=== PATIENT | female | born 1990 | race Caucasian/White ===

== ENCOUNTER 2017-06-01 10:03 | Emergency (ER) | payer OTHER, BC ==
[~2017-06-01] VITALS: Ht 157.5 cm; Wt 66.0 kg
[2017-06-01 10:04] VITALS: BP 138/92; PULSE 98; RESP 16; TEMP 98.2; O2SAT 100
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
[2017-06-01] MEDS ORDERED: CYCL10TA PO (13:05)
[2017-06-01] MEDS ORDERED: NAPR375T4 PO (13:05)
[2017-06-01 14:30] VITALS: BP 134/86; PULSE 87; RESP 18; O2SAT 97
== END 2017-06-01 13:44 | disposition home or self-care (01) ==
LOC: NEPD 10:03
DX: S39.012A Strain of muscle, fascia and tendon of lower back, initial encounter (principal); V49.49XA Driver injured in collision with other motor vehicles in traffic accident, initial encounter; Y92.410 Unspecified street and highway as the place of occurrence of the external cause
CPT/HCPCS: 72110; 84703; 99284